=== PATIENT | female | born 1980 | race Caucasian/White ===

== ENCOUNTER 2021-04-25 15:29 | Inpatient (IN) | payer MEDICAID, SELFPAY ==
[~2021-04-25] VITALS: Ht 162.6 cm; Wt 68.0 kg
[2021-04-25 15:33] VITALS: BP 130/74
--- NOTE | 2021-04-25 15:38 | NUR ---
DR ANDRES EVALUATING PATIENT AT BEDSIDE.
[2021-04-25] MEDS ORDERED: NACL 0.9% 1,000 ML IV ONE ×2 (15:45→21:20)
[2021-04-25] MEDS ORDERED: DIAZEPAM PFS 10 MG/2 ML SYR IVP ONE (15:50)
[2021-04-25 16:38] LABS: BASOPHILS % (AUTO) 0.3 % (0.0-2.0); EOSINOPHILS # (AUTO) 0.1 K/uL (0-0.4); EOSINOPHILS % (AUTO) 0.9 % (0.0-4.0); HEMATOCRIT 41.1 % (36-48); HEMOGLOBIN 14.2 g/dL (12.0-16.0); LYMPHOCYTES % (AUTO) 7.5 % (20.5-51.1); MEAN CORPUSCULAR HEMOGLOBIN 29 pg (27-31); MEAN CORPUSCULAR HGB CONC 35 g/dL (33-37); MONOCYTES # (AUTO) 0.8 K/uL (0.8-1.0); MONOCYTES % (AUTO) 6.1 % (1.7-9.3); NEUTROPHILS # (AUTO) 11.4 K/uL (1.8-7.7); NEUTROPHILS % (AUTO) 85.2 % (42.2-75.2); PLATELET COUNT (AUTO) 295 K/uL (140-450); RED BLOOD CELL COUNT(AUTO) 4.84 MIL/uL (4.20-5.40); RED CELL DISTRIBUTION WIDTH 12.6 % (11.6-13.7); WHITE BLOOD COUNT (AUTO) 13.4 K/uL (4.8-10.8)
[2021-04-25 17:00] LABS: ALBUMIN 4.1 g/dL (3.4-5.0); ANION GAP 14.5 (8-16); CARBON DIOXIDE 25.4 mmol/L (21-32); CREATININE 0.6 mg/dL (0.6-1.3); TOTAL BILIRUBIN 0.4 mg/dL (0.0-1.0)
[2021-04-25 17:04] LABS: POTASSIUM 2.9 mmol/L (3.5-5.1)
[2021-04-25] MEDS ORDERED: POTASSIUM CHL 20 MEQ/NACL 0.9% 1,000 ML IV ONE (17:10)
[2021-04-25] MEDS ORDERED: POTASSIUM CHLORIDE 10 MEQ TABER PO ONE (17:10)
--- NOTE | 2021-04-25 17:12 | NUR ---
PATIENT GAVE CONSENT TO SPEAK TO DAUGHTERMATTHEW FOR STATUS UPDATE.
--- NOTE | 2021-04-25 17:40 | NUR ---
PATIENT TAKEN TO CT VIA GURNEY.
--- NOTE | 2021-04-25 18:02 | NUR ---
PATIENT BROUGHT BACK FROM CT, RECONNECTED TO BEDSIDE MONITOR.
--- NOTE | 2021-04-25 19:19 | NUR ---
The patient's care was reviewed and supervised by Magaly Plummer RN.
--- NOTE | 2021-04-25 19:21 | NUR ---
Pt report given to LEATHA PALACIO. Transfer of care at this time.
--- NOTE | 2021-04-25 19:23 | NUR ---
REPORT RECEIVED FOR CONTINUITY OF CARE.
[2021-04-25] MEDS ORDERED: ONDANSETRON 4 MG/2 ML VIAL ONE (20:28)
[2021-04-25] MEDS ORDERED: ONDANSETRON 4 MG/2 ML VIAL IVP ONE (20:30)
--- NOTE | 2021-04-25 20:37 | NUR ---
WHILE AMBULATING PT TO RESTROOM VIA WHEELCHAIR, PT EXPERIENCED A LARGE AMOUNT OF VOMIT. IV ZOFRAN GIVEN. PT AMBULATED BACK TO BED AND PLACED ON MONITOR. WILL CONTINUE TO MONITOR.
[2021-04-25] MEDS ORDERED: MECLIZINE 25 MG TAB PO ONE (21:55)
[2021-04-25 23:00] LABS: APPEARANCE,URINE CLEAR (CLEAR); BILIRUBIN,URINE NEGATIVE (NEGATIVE); BLOOD, URINE TRACE-I (NEGATIVE); COLOR,URINE YELLOW (YELLOW); LEUKOCYTE ESTERASE ,URINE NEGATIVE (NEGATIVE); NITRITE, URINE NEGATIVE (NEGATIVE); UGLUCOSE NEGATIVE (NEGATIVE)
[2021-04-25 23:11] LABS: RBC,URINE 0-5 /HPF (0-5); WBC,URINE 0-5 /HPF (0-5)
--- NOTE | 2021-04-26 01:08 | NUR ---
PATIENT MOVED TO BED 3
--- NOTE | 2021-04-26 04:20 | NUR ---
Patient appears to be resting comfortably in bed- lights dimmed, eyes closed, and semi fowlers. Vital Signs within normal limits at this time. Respirations even and unlabored. Safety measures are in place, attached to monitor and will continue to monitor patient.
[2021-04-26 05:29] LABS: BASOPHILS # (AUTO) 0.1 K/uL (0.00-0.22); BASOPHILS % (AUTO) 0.4 % (0.0-2.0); EOSINOPHILS # (AUTO) 0.1 K/uL (0-0.4); EOSINOPHILS % (AUTO) 0.4 % (0.0-4.0); HEMATOCRIT 36.5 % (36-48); HEMOGLOBIN 12.6 g/dL (12.0-16.0); LYMPHOCYTES # (AUTO) 1.3 K/uL (2.5-16.5); LYMPHOCYTES % (AUTO) 8.1 % (20.5-51.1); MEAN CORPUSCULAR HEMOGLOBIN 30 pg (27-31); MEAN CORPUSCULAR HGB CONC 35 g/dL (33-37); MEAN CORPUSCULAR VOLUME 85.3 fL (80-94); MONOCYTES # (AUTO) 1.2 K/uL (0.8-1.0); MONOCYTES % (AUTO) 7.9 % (1.7-9.3); NEUTROPHILS % (AUTO) 83.2 % (42.2-75.2); PLATELET COUNT (AUTO) 291 K/uL (140-450); RED BLOOD CELL COUNT(AUTO) 4.28 MIL/uL (4.20-5.40); RED CELL DISTRIBUTION WIDTH 13.1 % (11.6-13.7); WHITE BLOOD COUNT (AUTO) 15.6 K/uL (4.8-10.8)
[2021-04-26 05:43] LABS: ANION GAP 10.3 (8-16); CARBON DIOXIDE 26.2 mmol/L (21-32); CREATININE 0.5 mg/dL (0.6-1.3); POTASSIUM 3.5 mmol/L (3.5-5.1)
--- NOTE | 2021-04-26 06:15 | NUR ---
PATIENT AMBULATED TO THE BATHROOM
--- NOTE | 2021-04-26 07:14 | NUR ---
Pt report given to Kenyatta ZHANG and Cindy HEMPHILL. Transfer of care at this time.
[2021-04-26 09:00] VITALS: BP 105/71
--- NOTE | 2021-04-26 09:14 | NUR ---
Patient will be admitted to care of lei lemons. Admited to telemetry. Will go to room 118. Belongings list completed. Report to ellis batista. telebox on pt, mt notified of pt arrival.
--- NOTE | 2021-04-26 09:30 | NUR ---
RECEIVED REPORT FOR PT FROM ED AND RECEIVED PT TO ROOM 118 ON THE MST FLOOR. PT BREATHING EVEN AND UNLABORED. PT IS STABLE. NO DIZZINESS NOTED OR REPORTED AT THE MOMENT. PT IS COVID RAPID POSITIVE.
--- NOTE | 2021-04-26 11:00 | NUR ---
NS STARTED FOR PT AT 60ML/HR WELL ROCEPHIN FOR HIGH WBC COUNT. NO REACTION ADVERSE NOTED.
[2021-04-26] MEDS ORDERED: ALBUTEROL HFA MDI 90 MCG/ACTUATION 8 GM INH PRN (11:30)
[2021-04-26] MEDS ORDERED: ACETAMINOPHEN 325 MG TAB PO PRN (11:35)
[2021-04-26] MEDS ORDERED: MAG SULF 2000 MG/WATER PREMIX 50 ML IV PRN (11:35)
[2021-04-26] MEDS ORDERED: DOCUSATE SODIUM 100 MG GELCAP PO PRN (11:35)
[2021-04-26] MEDS ORDERED: ONDANSETRON 4 MG/2 ML VIAL IM/IVP PRN (11:35)
[2021-04-26] MEDS: NACL 0.9% 1,000 ML IV SCH (11:35)
[2021-04-26] MEDS ORDERED: POTASSIUM CHLORIDE 10 MEQ TABER PO PRN (11:35)
[2021-04-26 12:00] VITALS: BP 102/62
--- NOTE | 2021-04-26 12:04 | NUR ---
PATIENT HAS BEEN SCREENED AND CATEGORIZED HIGH NUTRITION RISK. PATIENT WILL BE SEEN WITHIN 1-2 DAYS OF ADMISSION. RECEIVED REFERRAL FOR NAUSEA AND VOMITING OVER THREE DAYS [address]
[2021-04-26 14:34] LABS: MAGNESIUM 2.2 mg/dL (1.8-2.4); THYROID STIMULATING HORMONE 1.42 uIU/mL (0.34-3.74)
[2021-04-26 16:00] VITALS: BP 109/67
--- NOTE | 2021-04-26 16:00 | NUR ---
PT FELT DIZZY. TESTED THE ORTHOSTATIC HYPOTENSION, BP GOES UP WENT SITTING OR STANDING.
[2021-04-26] MEDS: MECLIZINE 25 MG TAB PO PRN (17:42)
--- NOTE | 2021-04-26 17:42 | NUR ---
GAVE ANTIVERT TO PT FOR DIZZINESS TO AVOID N/V EVENTUALLY.
--- NOTE | 2021-04-26 18:30 | NUR ---
PT FELT BETTER WHEN HEAD WAS LOWERED AND THE FEET WERE ELEVATED. PT IS STABLE.
--- NOTE | 2021-04-26 19:43 | NUR ---
PT ENDORSED TO SIGNALING DESIGN ENGINEER NURSE FOR CONTINUITY OF CARE. POC DISCUSSED.
--- NOTE | 2021-04-26 19:45 | NUR ---
RECEIVED REPORT FOR PT FROM AM SHIFT NURSE FOR CONTINUITY OF CARE.PT A/A/O, FAROESE SPEAKING.ON ROOM AIR.PT BREATHING EVEN AND UNLABORED. PT IS STABLE. MILD DIZZINESS REPORTED. PT ON DROPLET PRECAUTION DUE TO COVID POSITIVE. CALL LIGHT WITHIN REACH. WILL CONTINUE TO MONITOR.
[2021-04-26 20:00] VITALS: BP 111/67
--- NOTE | 2021-04-26 21:15 | NUR ---
SCHEDULED MEDICATIONS GIVEN. PT TOLERATED WELL. WILL CONTINUE TO MONITOR.
[2021-04-26] MEDS: ZINC SULF 220 MG CAP PO SCH (22:04)
--- NOTE | 2021-04-26 23:00 | NUR ---
DR SYLVESTER CALLED. ORDERED TO OBTAIN CXR AND TO DC DECADRON PT ON ROOM AIR.
[2021-04-27] VITALS: BP 122/74
--- NOTE | 2021-04-27 02:05 | NUR ---
PT ASLEEP.VISIBLE CHEST RISE AND FALL NOTED. NO DISTRESS NOTED. WILL CONTINUE TO MONITOR.
[2021-04-27 04:00] VITALS: BP 111/70
[2021-04-27] MEDS: NACL 0.9% 1,000 ML IV SCH (04:15)
[2021-04-27] MEDS: MECLIZINE 25 MG TAB PO PRN (05:39)
--- NOTE | 2021-04-27 05:45 | NUR ---
PRN ANTIVERT GIVEN FOR DIZZINESS. PT TOLERATED WELL. ALL PRECAUTIONS IN PLACE. WILL CONTINUE TO MONITOR.
--- NOTE | 2021-04-27 06:28 | NUR ---
PT IS STABLE. NO ACUTE EVENTS THROUGHOUT THE NIGHT. NO S/SX OF DISTRESS NOTED. ALL NEEDS ATTENDED.ALL PRECAUTIONS IN PLACE. WILL ENDORSE TO AM SHIFT NURSE.
[2021-04-27 07:15] LABS: BASOPHILS % (AUTO) 0.5 % (0.0-2.0); EOSINOPHILS # (AUTO) 0.2 K/uL (0-0.4); EOSINOPHILS % (AUTO) 2.4 % (0.0-4.0); HEMATOCRIT 37.6 % (36-48); HEMOGLOBIN 12.8 g/dL (12.0-16.0); LYMPHOCYTES # (AUTO) 1.3 K/uL (2.5-16.5); LYMPHOCYTES % (AUTO) 14.5 % (20.5-51.1); MEAN CORPUSCULAR HEMOGLOBIN 29 pg (27-31); MEAN CORPUSCULAR HGB CONC 34 g/dL (33-37); MONOCYTES # (AUTO) 0.8 K/uL (0.8-1.0); NEUTROPHILS # (AUTO) 6.6 K/uL (1.8-7.7); NEUTROPHILS % (AUTO) 73.6 % (42.2-75.2); PLATELET COUNT (AUTO) 290 K/uL (140-450); RED BLOOD CELL COUNT(AUTO) 4.37 MIL/uL (4.20-5.40); RED CELL DISTRIBUTION WIDTH 12.7 % (11.6-13.7); WHITE BLOOD COUNT (AUTO) 8.9 K/uL (4.8-10.8)
--- NOTE | 2021-04-27 07:30 | NUR ---
RECEIVED REPORT FROM RAIL CAR MECHANIC NURSE FOR CONTINUITY OF CARE. PT IS AWAKE AND ALERT. ON RA WITH BREATHING UNLABORED. ON TELE MONITOR. AMBULATORY INDEPENDENTLY. SKIN IS WARM, DRY, AND INTACT. IVS ARE PATENT AND INTACT. PT IS STABLE. PLAN OF CARE DISCUSSED.
--- NOTE | 2021-04-27 07:34 | NUR ---
ENDORSED TO AM SHIFT NURSE FOR CONTINUITY OF CARE. PT IS STABLE.
[2021-04-27 08:00] VITALS: BP 114/70
[2021-04-27 08:20] LABS: ALBUMIN 3.4 g/dL (3.4-5.0); ANION GAP 13.5 (8-16); CARBON DIOXIDE 26.9 mmol/L (21-32); CREATININE 0.6 mg/dL (0.6-1.3); MAGNESIUM 2.3 mg/dL (1.8-2.4); PHOSPHORUS 3.2 mg/dL (2.5-4.9); POTASSIUM 3.4 mmol/L (3.5-5.1); TOTAL BILIRUBIN 0.6 mg/dL (0.0-1.0)
--- NOTE | 2021-04-27 08:40 | NUR ---
DC PLANNING: THE PATIENT ADMITTED FROM HOME, SUSY WITH C/O DIZZINESS, N/V. NO PRIOR MEDICAL HISTORY, PATIENT TESTED POSITIVE FOR COVID. PLACED IN CONTACT AND DROPLET ISOLATION, DEXAMETHASONE, ROCEPHIN AND ZITHROMAX. ID CONSULT, WBC'S ELEVATED TO 15.6 TODAY. CXR NEGATIVE, PATIENT ON RA. CM SPOKE WITH THE PATIENTS AND DAUGHTER BY PHONE AND CONFIRMED THEIR ADDRESS AND PHONE NUMBER. THE PATIENT LIVES WITH HER SPOUSE AND DAUGHTER IN A SECOND STORY APARTMENT. HAS NO DME OR H/O HOME HEALTH AND IS INDEPENDENT IN ALL ACTIVITIES. DC PLAN IS TO RETURN HOME WHEN CLINICALLY STABLE, CM WILL FOLLOW. Addendum: 04/27/21 at 0843 by Nicki Avelar CM Amended: Links added.
[2021-04-27] MEDS ORDERED: VITAMIN D 400 IU TAB PO SCH (09:00)
[2021-04-27] MEDS ORDERED: ASCORBIC ACID 500 MG TAB PO SCH (09:00)
[2021-04-27] MEDS ORDERED: AZITHROMYCIN 250 MG TAB PO SCH (09:00)
[2021-04-27] MEDS: ZINC SULF 220 MG CAP PO SCH (09:27)
--- NOTE | 2021-04-27 10:00 | NUR ---
PT IS SPEAKING APPROPRIATELY AND ANSWERING QUESTIONS. PT IS STABLE. DENIES ANY SOB, HEADACHE, OR DIZZINESS. BREATHING IS UNLABORED ON RA. O2 SAT IS 100%. IV IS INTACT AND INFUSING FLUIDS. PT ATE 100% OF BREAKFAST. WILL MONITOR.
[2021-04-27 12:00] VITALS: BP 111/75
--- NOTE | 2021-04-27 12:00 | NUR ---
PT IS AWAKE, IN SEMI FOWLERS POSITION. NO RESPIRATORY DISTRESS NOTED ON RA. PT DENIES COUGH, NAUSEA, OR HEADACHE. FEVER OF 99.0 F, BLANKETS REMOVED AND COOLING MEASURES PLACED.
[2021-04-27] MEDS ORDERED: MECL-231 PO (14:02)
--- NOTE | 2021-04-27 14:30 | NUR ---
PT IS STABLE. DENIES ANY ISSUES. NO PAIN AT THIS TIME. ON RA WITH BREATHING UNLABORED. WILL MONITOR.
--- NOTE | 2021-04-27 16:40 | NUR ---
DISCHARGE INSTRUCTIONS WERE EXPLAINED IN [place] BY [employer] SPEAKING EMPLOYEE. PT VERBALIZED UNDERSTANDING. NO DISTRESS NOTED. DENIES COUGH, N/V, DIARRHEA, OR HEADACHE. PT DENIES SOB OR DIZZINESS. MEDICATION EDUCATION PROVIDED AND PT VERBALIZED UNDERSTANDING. VS ARE STABLE. BOTH IVS REMOVED AND BLEEDING CONTROLLED. ID BAND REMOVED. TAKEN BY WHEELCHAIR TO FRONT OF THE HOSPITAL AND ESCORTED HER INTO THE CAR. PT IS DISCHARGED.
== END 2021-04-27 16:40 | disposition home or self-care (01) | DRG 720 ==
LOC: MED 15:29 → MTU 22:52
DX: A41.89 Other specified sepsis (principal); U07.1 COVID-19; E86.0 Dehydration; E87.6 Hypokalemia; R26.9 Unspecified abnormalities of gait and mobility; R94.31 Abnormal electrocardiogram [ECG] [EKG]; Z91.013 Allergy to seafood
CPT/HCPCS: 36415; 70450; 71045; 80048; 80053; 81001; 83036; 83605; 83615; 83690; 83735; 84100; 84132; 84443; 84484; 84702; 85025; 85379; 85610; 85651; 85730; 86140; 87081; 87086; 93005; 96361; 96365; 96375; 99285; J0696; J1644; J2405; J3360; J7030; J7060; J8597; Q0092; Q9967; U0003